=== PATIENT | female | born 1990 | race Two or more races ===

== ENCOUNTER 2017-02-19 10:30 | Emergency (ER) | payer OTHER ==
[~2017-02-19] VITALS: Ht 165.1 cm; Wt 117.9 kg
[2017-02-19 11:05] VITALS: BP 121/86
[2017-02-19] MEDS ORDERED: MIRALAX17 G2 ORAL (11:36)
[2017-02-19] MEDS ORDERED: TRUFORM COMPRE1 EAC1 MC (11:36)
[2017-02-19] MEDS ORDERED: KEFLEX500 MG ORAL (11:36)
[2017-02-19 11:54] VITALS: BP 121/84
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
== END 2017-02-19 11:59 | disposition home or self-care (01) ==
LOC: EMR 11:07
DX: S60.811A Abrasion of right wrist, initial encounter (principal); S70.212A Abrasion, left hip, initial encounter; Y35.891A Legal intervention involving other specified means, law enforcement official injured, initial encounter; Y92.89 Other specified places as the place of occurrence of the external cause; E11.9 Type 2 diabetes mellitus without complications; I10 Essential (primary) hypertension; J45.909 Unspecified asthma, uncomplicated; F31.9 Bipolar disorder, unspecified; F20.9 Schizophrenia, unspecified; R60.0 Localized edema; K59.00 Constipation, unspecified
CPT/HCPCS: 99284

== ENCOUNTER 2018-12-14 20:37 | Emergency (ER) | payer OTHER ==
[~2018-12-14] VITALS: Ht 162.6 cm; Wt 115.7 kg
[~2018-12-14 20:37] MED LIST: KEFLEX500 MG ORAL; MIRALAX17 G2 ORAL; TRUFORM COMPRE1 EAC1 MC
[2018-12-14] MEDS ORDERED: DEPAKOTE250 MG PO (20:45)
[2018-12-14 21:09] VITALS: BP 128/80
[2018-12-14] MEDS ORDERED: BACITRACIN15 GM TOPIC (21:59)
[2018-12-14 22:08] VITALS: BP 124/68
[2018-12-14 22:09] VITALS: BP 124/68
[2018-12-14] MEDS ORDERED: Bacitracin Oint UD TOPIC ONE (22:15)
--- NOTE | 2018-12-14 23:58 | Emergency Room Report ---
History of Present Illness General Chief Complaint: Laceration Source: Patient Present Illness HPI 27-year-old male presents ED for evaluation. States that he cut his hand with broken glass today when he closed a door quickly. There is a cut between the second and third digits on the left hand. Denies any other injuries. Tetanus is up-to-date. Pain is dull, 4 out of 10, nonradiating. Denies any other injuries no other aggravating relieving factors. Denies any other associated symptoms Allergies: Coded Allergies: No Known Allergies (Unverified , 02/19/17) Patient History Past Medical History: DM, HTN, asthma Past Surgical History: none Pertinent Family History: none Social History: Denies: smoking, alcohol use, drug use Immunizations: UTD Reviewed Nursing Documentation: PMH: Agreed; PSxH: Agreed Nursing Documentation-PMH Past Medical History: No History, Except For Hx Hypertension: Yes Hx Asthma: Yes Hx Diabetes: Yes Review of Systems All Other Systems: negative except mentioned in HPI Physical Exam Vital Signs Date Time Temp Pulse Resp B/P (MAP) Pulse Ox O2 Delivery O2 Flow Rate FiO2 12/14/18 20:41 98.2 84 14 133/90 (104) 97 Room Air Sp02 EP Interpretation: reviewed, normal General Appearance: no apparent distress, alert, GCS 15, non-toxic Head: normocephalic Eyes: bilateral eye normal inspection, bilateral eye PERRL ENT: normal ENT inspection Neck: normal inspection Respiratory: normal inspection Cardiovascular #1: normal inspection Gastrointestinal: normal inspection Rectal: deferred Genitourinary: no CVA tenderness Musculoskeletal: back normal, gait/station normal, normal range of motion, non- tender Neurologic: alert, oriented x3, responsive, motor strength/tone normal, sensory intact, speech normal Psychiatric: normal inspection Skin: laceration - 1cm laceration between 2nd and 3rd digits L hand. no active bleeding. no muscle or tendon exposure Lymphatic: normal inspection Procedures Laceration/Wound Repair Laceration/Wound Repair : Consent: Verbal Wound Location: upper extremity - L hand Wound's Depth, Shape: linear Wound Explored: clean Betadine Prep?: Yes Anesthesia: Lidocaine w/ Epi Wound Debrided: minimal Wound Repaired With: sutures Suture Size/Type: 5:0, proline Layer Closure?: No Sterile Dressing Applied?: Yes Splint Applied?: No Sling Applied?: No Patient Tolerated: Well Complications: None Medical Decision Making Diagnostic Impression: Primary Impression: Laceration ER Course Hospital Course 27-year-old M presents to ED s/p laceration between 2nd and 3rd fingers with broken glass Clinical course Patient placed on stretcher. After initial history and physical wound irrigated. no evidence of foreign body. Anesthesia provided with lidocaine. Laceration repaired w/o complication. Dressing/bacitracin applied. discussed findings with patient. Wound care instructions given. Safe for discharge for close outpatient follow-up. Will provide referrals. Patient can return to ED for suture removal Diagnosis - laceration Stable and discharged to home with prescription for bacitraicn. wound Care instructions given. Followup with PMD in 10-12 days for suture removal. Return to ED if any signs of infection develop Last Vital Signs Date Time Temp Pulse Resp B/P (MAP) Pulse Ox O2 Delivery O2 Flow Rate FiO2 12/14/18 22:09 98.6 80 17 124/68 97 Room Air Status: improved Disposition: HOME, SELF-CARE Condition: Stable Scripts Bacitracin (Bacitracin) 28.4 Gm Oint...g. 1 APPLIC TOPIC THREE TIMES A DAY, #28.4 GM Prov: Homero Street MD 12/14/18 Referrals: [facility],REFERRING (PCP) Gaby Emanuel [facility]. [facility] Patient Instructions: Laceration Care, Adult Additional Instructions: return to ED in 10-12 days for suture removal. return to ED fi any signs of infection develop Homero Street MD Dec 14, 2018 23:58
== END 2018-12-14 22:20 | disposition home or self-care (01) ==
LOC: EMR 21:06
DX: S61.412A Laceration without foreign body of left hand, initial encounter (principal); E11.9 Type 2 diabetes mellitus without complications; I10 Essential (primary) hypertension; J45.909 Unspecified asthma, uncomplicated; W25.XXXA Contact with sharp glass, initial encounter; Y92.9 Unspecified place or not applicable
CPT/HCPCS: 12001; 99283; Z7502

== ENCOUNTER 2018-12-24 15:23 | Emergency (ER) | payer OTHER ==
[~2018-12-24] VITALS: Ht 165.1 cm; Wt 74.8 kg
[~2018-12-24 15:23] MED LIST changes: +BACITRACIN15 GM TOPIC; +DEPAKOTE250 MG PO
[2018-12-24] MEDS ORDERED: UNOBMED (15:40)
--- NOTE | 2018-12-24 15:44 | Emergency Room Report ---
History of Present Illness General Chief Complaint: Wound Recheck/Suture Removal Source: Patient, Medical Record Present Illness HPI The patient is a 27-year-old presenting for suture removal. Sutures were placed approximately 10 days prior after laceration between the left second and third fingers. The patient states that they have been keeping the wound clean and dry. Has been applying antibiotic cream. He states that 2 of the sutures fell out on the first day. He did not think to return and have them replaced. He denies any other symptoms including nausea, vomiting, fever, chills, rash, numbness Allergies: Coded Allergies: No Known Allergies (Unverified , 02/19/17) Patient History Past Medical History: see triage record Pertinent Family History: none Reviewed Nursing Documentation: PMH: Agreed; PSxH: Agreed Nursing Documentation-PMH Past Medical History: No History, Except For Hx Hypertension: Yes Hx Asthma: Yes Hx Diabetes: Yes Review of Systems All Other Systems: negative except mentioned in HPI Physical Exam Vital Signs Date Time Temp Pulse Resp B/P (MAP) Pulse Ox O2 Delivery O2 Flow Rate FiO2 12/24/18 15:30 97.3 80 16 113/61 (78) 98 Room Air Sp02 EP Interpretation: reviewed, normal General Appearance: no apparent distress, alert, GCS 15, non-toxic Head: normocephalic, atraumatic Musculoskeletal: back normal, gait/station normal, normal range of motion Neurologic: alert, oriented x3, responsive, motor strength/tone normal, sensory intact, speech normal Psychiatric: judgement/insight normal, memory normal, mood/affect normal, no suicidal/homicidal ideation Skin: no rash, normal inspection, warm/dry, other - laceration L webspace between 2nd and 3rd finger Lymphatic: no adenopathy Procedures Additional Procedure Procedure Narrative Suture removal: 3 simple interrupted sutures were removed without complication. No bleeding or discharge. Medical Decision Making PA Attestation Dr. Ring is my supervising physician. Patient management was discussed with my supervising physician ER Course Patient is a 27-year-old presenting for suture removal and wound check Differential diagnosis considered: Wound infection, nonhealing wound, cellulitis , abscess PE: afebrile. There were only 3 sutures remaining. The wound edges of the mid-wound are not adhered. No bleeding. No erythema. The area is cleaned and new dressing applied. They will continue to use bacitracin and keep the wound clean and dry. Follow- up with primary doctor for further evaluation ER precautions given Last Vital Signs Date Time Temp Pulse Resp B/P (MAP) Pulse Ox O2 Delivery O2 Flow Rate FiO2 12/24/18 15:30 97.3 80 16 113/61 (78) 98 Room Air Status: improved Disposition: HOME, SELF-CARE Condition: Improved Scripts Bacitracin (Bacitracin) 28.4 Gm Oint...g. 1 APPLIC TOPIC THREE TIMES A DAY, #28 GM Prov: ANAHI ZAPIEN 12/24/18 ANAHI ZAPIEN Dec 24, 2018 15:44
[2018-12-24] MEDS ORDERED: BACITRACIN15 GM TOPIC (15:45)
[2018-12-24 15:58] VITALS: BP 113/61
--- NOTE | 2018-12-24 16:00 | NUR ---
Patient was evaluated, treated and discharged with aftercare instructions by MD/PA
== END 2018-12-24 16:07 | disposition home or self-care (01) ==
LOC: EMR 15:40
DX: S61.412A Laceration without foreign body of left hand, initial encounter (principal); Z48.02 Encounter for removal of sutures; X58.XXXA Exposure to other specified factors, initial encounter; Y93.9 Activity, unspecified; Y92.9 Unspecified place or not applicable; E11.9 Type 2 diabetes mellitus without complications; I10 Essential (primary) hypertension
CPT/HCPCS: 99282